=== PATIENT | male | born 1985 ===

== ENCOUNTER 2020-08-12 18:07 | Emergency (ER) | payer SELFPAY ==
[2020-08-12] MEDS ORDERED: TETANUS,DIPHTHERIA TOXOID ADULT 0.5 ML INJ IM STA (18:27)
[2020-08-12 18:30] VITALS: BP 138/94
--- NOTE | 2020-08-12 19:06 | Cat Scan Report ---
NONENHANCED CT SCAN OF THE HEAD: INDICATION / CLINICAL INFORMATION: 34 years Male; headache. TECHNIQUE: Routine CT head without contrast. All CT scans at this location are performed using CT dos e reduction for ALARA by means of automated exposure control. COMPARISON: None. FINDINGS: BRAIN / INTRACRANIAL CONTENTS: Scalp thickening in the left frontal region; most likely hematoma; no intracranial sequela from the trauma; no air-fluid level in the visualized portions of the paranasal sinuses No acute hemorrhage, mass effect, midline shift, hydrocephalus, or acute, large territorial infarct. No chronic infarct or focal atrophy. Normal brain volume and ventricular/sulcal size for age. No sig nificant white matter abnormality. CRANIOCERVICAL JUNCTION: No significant abnormality. ORBITS: No significant abnormality of visualized orbits. SINUSES / MASTOIDS: Retention cyst in the right maxillary sinus ADDITIONAL FINDINGS: None. IMPRESSION: Left frontal scalp hematoma; no intracranial sequela from the trauma No acute parenchymal lesion in the brain Signer Name: Roosevelt Dozier MD Signed: 08/12/2020 7:02 PM Workstation Name: [id number]
[2020-08-12] MEDS ORDERED: ACETAMINOPHEN 325 MG TAB PO ONE (22:06)
--- NOTE | 2020-08-12 22:09 | Emergency Department Report ---
ED Head Trauma HPI - General Chief complaint: Head Injury Stated complaint: HEAD INJURY Source: patient Mode of arrival: Ambulatory Limitations: No Limitations - History of Present Illness Initial comments: Patient is a 34-year-old male with no past medical history who presents to the ED with complaint of acute onset persistent painful bleeding left frontal scalp laceration after a metallic lever that he was using to tighten his lose vehicle wheels became loose and rebounded back hitting him on the left frontal scalp and causing laceration. Patient now complains of mild headache. Patient also states that he is not up-to-date with his tetanus vaccinations. Patient denies loss of consciousness, nausea, vomiting, change in vision, dizziness, syncope, seizures, neck pain or fall and chest pain or shortness of breath. MD Complaint: head injury (left frontal scalp laceration ) -: Sudden, hour(s) (6) Arrival Conditions: Negative: C-spine immobilization present, spinal board immobilization present Mechanism of Injury: work related injury, other (metallic erin rebound and hit him on head) Location: frontal (left) Loss of Consciousness: no Previous Trauma to this Area: No Place: work Radiation: none Severity: moderate Severity scale (0 -10): 4 Quality: dull, aching Consistency: constant Provoking factors: none known Other Injuries: laceration Associated Symptoms: denies other symptoms. denies: confusion, amnesia, repetitive questioning, vision changes, nausea, vomiting, vertigo, syncope, numbness, weakness, tingling, neck pain, other - Related Data Previous Rx's Medication Instructions Recorded Last Taken Type Ibuprofen [Motrin] 800 mg PO Q8HR PRN #20 tablet 08/12/20 Unknown Rx cephALEXin [Keflex] 500 mg PO Q8HR #21 cap 08/12/20 Unknown Rx Allergies/Adverse reactions: Allergies Allergy/AdvReac Type Severity Reaction Status Date / Time No Known Allergies Allergy Unverified 08/12/20 18:30 ED Review of Systems ROS: Stated complaint: HEAD INJURY Other details as noted in HPI Constitutional: denies: chills, fever Eyes: denies: eye pain, eye discharge, vision change ENT: denies: ear pain, throat pain Respiratory: denies: cough, shortness of breath, wheezing Cardiovascular: denies: chest pain, palpitations, dyspnea on exertion Endocrine: no symptoms reported Gastrointestinal: denies: abdominal pain, nausea, diarrhea Genitourinary: denies: urgency, dysuria Musculoskeletal: denies: back pain, joint swelling, arthralgia Skin: other (Bleeding left frontal scalp laceration). denies: rash, lesions Neurological: headache. denies: weakness, paresthesias Psychiatric: denies: anxiety, depression Hematological/Lymphatic: denies: easy bleeding, easy bruising ED Past Medical Hx - Past Medical History Previous Medical History?: No - Surgical History Past Surgical History?: No - Medications Home Medications: Home Medications Medication Instructions Recorded Confirmed Last Taken Type Ibuprofen [Motrin] 800 mg PO Q8HR PRN #20 tablet 08/12/20 Unknown Rx cephALEXin [Keflex] 500 mg PO Q8HR #21 cap 08/12/20 Unknown Rx ED Physical Exam - General Limitations: No Limitations General appearance: alert, in no apparent distress - Head Head exam: Present: other (Bleeding left frontal scalp 3 cm laceration) - Eye Eye exam: Present: normal appearance, PERRL, EOMI Pupils: Present: normal accommodation - ENT ENT exam: Present: normal exam, normal orophraynx, mucous membranes moist, TM's normal bilaterally, normal external ear exam - Neck Neck exam: Present: normal inspection, full ROM. Absent: tenderness - Respiratory Respiratory exam: Present: normal lung sounds bilaterally. Absent: respiratory distress, wheezes, rales, rhonchi, stridor, chest wall tenderness, accessory muscle use, prolonged expiratory - Cardiovascular Cardiovascular Exam: Present: regular rate, normal rhythm, normal heart sounds. Absent: systolic murmur, diastolic murmur, rubs, gallop - GI/Abdominal GI/Abdominal exam: Present: soft, normal bowel sounds. Absent: distended, tenderness, rebound, hyperactive bowel sounds, hypoactive bowel sounds, organomegaly - Extremities Exam Extremities exam: Present: normal inspection, full ROM, normal capillary refill - Back Exam Back exam: Present: normal inspection, full ROM. Absent: tenderness, CVA tenderness (R), CVA tenderness (L), muscle spasm, paraspinal tenderness, vertebral tenderness - Neurological Exam Neurological exam: Present: alert, oriented X3, CN II-XII intact, normal gait, reflexes normal - Psychiatric Psychiatric exam: Present: normal affect, normal mood - Skin Skin exam: Present: warm, dry, intact, normal color, other (Bleeding left frontal scalp 3 cm laceration). Absent: rash ED Course Vital Signs 08/12/20 18:26 Temperature 97.6 F Pulse Rate 99 H Respiratory 16 Rate Blood Pressure 138/94 [Right] O2 Sat by Pulse 99 Oximetry - Laceration /Wound Repair Left Frontal Wound Location: head (left frontal scalp ) Wound Length (cm): 3 Wound's Depth, Shape: superficial, linear Wound Explored: contaminated Irrigated w/ Saline (ccs): 60 Betadine Prep?: Yes Anesthesia: 1% Lidocaine Volume Anesthetic (ccs): 5 Wound Debrided: extensive Wound Repaired With: sutures Suture Size/Type: 5:0, proline Number of Sutures: 8 Layer Closure?: No Sterile Dressing Applied?: Yes Progress: Patient did tolerate the procedure well. Patient was discharged home on pain medication and prophylactic antibiotics and advised to follow-up with his primary care physician in 5 to 7 days for reevaluation or return to the ED immediately if symptoms get worse. Patient was otherwise advised to follow-up with his primary care physician or return to the ED in 8 to 10 days for suture removal. - Radiology Data Radiology results: report reviewed, image reviewed Findings [address] [address] Cat Scan Report Signed Patient: MOY REES MR#: [id number] : 1985 Acct:[id number] Age/Sex: 34 / M ADM Date: 08/12/20 Loc: ED Attending Dr: Ordering Physician: NICKY PATTERSON Date of Service: 08/12/20 Procedure(s): CT head/brain wo con Accession Number(s): [id number] cc: NICKY PATTERSON NONENHANCED CT SCAN OF THE HEAD: INDICATION / CLINICAL INFORMATION: 34 years Male; headache. TECHNIQUE: Routine CT head without contrast. All CT scans at this location are performed using CT dose reduction for ALARA by means of automated exposure control. COMPARISON: None. FINDINGS: BRAIN / INTRACRANIAL CONTENTS: Scalp thickening in the left frontal region; most likely hematoma; no intracranial sequela from the trauma; no air-fluid level in the visualized portions of the paranasal sinuses No acute hemorrhage, mass effect, midline shift, hydrocephalus, or acute, large territorial infarct. No chronic infarct or focal atrophy. Normal brain volume and ventricular/sulcal size for age. No significant white matter abnormality. CRANIOCERVICAL JUNCTION: No significant abnormality. ORBITS: No significant abnormality of visualized orbits. SINUSES / MASTOIDS: Retention cyst in the right maxillary sinus ADDITIONAL FINDINGS: None. IMPRESSION: Left frontal scalp hematoma; no intracranial sequela from the trauma No acute parenchymal lesion in the brain Signer Name: Roosevelt Dozier MD Signed: 08/12/2020 7:02 PM Workstation Name: [id number] Transcribed By: BS Dictated By: Roosevelt De La Paz MD Electronically Authenticated By: Roosevelt De La Paz MD Signed Date/Time: 08/12/201901 DD/ 58 TD/TT: - Medical Decision Making This is a 34-year-old male with no past medical history who presents to the ED with complaint of acute onset persistent painful bleeding left frontal scalp laceration after a metallic lever that he was using to tighten his [employer] vehicle wheels became loose and rebounded back hitting him on the left frontal scalp and causing laceration. Patient now complains of mild headache. Patient also states that he is not up-to-date with his tetanus vaccinations. In the ED, patient is alert and oriented x3 and is not in distress. Patient was treated for pain in the ED and also received booster tetanus vaccinations. Head CT scan without contrast showed no acute intracranial abnormalities or hemorrhage. The left frontal scalp laceration was cleaned thoroughly and sutured per protocol. Patient tolerated the procedure well. Patient was then discharged home on pain medications and prophylactic antibiotics and was advised to return to the ED immediately if symptoms get worse, otherwise follow-up with his primary care physician in 7 to 10 days for reevaluation. Patient was otherwise advised to return to the ED or to his primary care physician in 8 to 10 days for suture removal. - Differential Diagnosis Scalp contusion; scalp laceration; headache; head injury; concussion - Core Measures AMI Core Measures Followed: No Measure Exclusions: not indicated - NEXUS Criteria Focal neurological deficit present: No Midline spinal tenderness present: No Altered level of consciousness: No Intoxication present: No Distracting injury present: No NEXUS results: C-Spine can be cleared clinically by these results. Imaging is not required. Critical care attestation.: If time is entered above; I have spent that time in minutes in the direct care of this critically ill patient, excluding procedure time. ED Disposition Clinical Impression: Laceration of scalp without complication Qualifiers: Encounter type: initial encounter Qualified Code(s): S01.01XA - Laceration without foreign body of scalp, initial encounter Contusion of scalp Qualifiers: Encounter type: initial encounter Qualified Code(s): S00.03XA - Contusion of scalp, initial encounter Post-traumatic headache, not intractable Qualifiers: Headache chronicity pattern: acute headache Qualified Code(s): G44.319 - Acute post-traumatic headache, not intractable Disposition: DC- TO HOME OR SELFCARE Is pt being admited?: No Does the pt Need Aspirin: No Condition: Stable Instructions: Facial or Scalp Contusion, [id number], Wound Infection, [id number], Contusion, [id number], Sutures, [place], or Adhesive Wound Closure, [id number] Additional Instructions: The head CT scan without contrast showed no acute intracranial abnormalities or hemorrhage. Therefore take pain medication with food, drink plenty of fluids and follow-up with your primary care physician in 7 to 10 days for reevaluation. Return to the ED immediately if symptoms get worse. Prescriptions: cephALEXin [Keflex] 500 mg PO Q8HR #21 cap Ibuprofen [Motrin] 800 mg PO Q8HR PRN #20 tablet PRN Reason: Pain , Severe (7-10) Referrals: PRIMARY CARE, [Primary Care Provider] - 3-5 Days [facility] [Provider Group] - 7-10 days Time of Disposition: 22:14 Print Language: DIVEHI
[2020-08-12] MEDS ORDERED: SODIUM CHLORIDE 0.9% 1000 ML 1,000 ML IV ONE (22:23)
[2020-08-12] MEDS ORDERED: DIPHtheria,PERTUSSIS(ACELL),TETANUS VACCINE/PF 0.5 ML VIAL IM ONE (22:43)
[2020-08-12] MEDS: LIDOCAINE-MPF (1%) 10 MG/1 ML VIAL 5 ML INFILTRATI ONE ×2 (22:48→22:52)
== END 2020-08-12 23:00 | disposition home or self-care (01) ==
LOC: ED 18:07
DX: S01.01XA Laceration without foreign body of scalp, initial encounter (principal); S00.03XA Contusion of scalp, initial encounter; G44.319 Acute post-traumatic headache, not intractable; X58.XXXA Exposure to other specified factors, initial encounter; Y93.89 Activity, other specified; Y92.89 Other specified places as the place of occurrence of the external cause; Y99.8 Other external cause status
CPT/HCPCS: 70450; 90471; 90714; 90715